=== PATIENT | female | born 1995 | race Caucasian/White ===

== ENCOUNTER 2016-08-16 06:16 | Emergency (ER) | payer OTHER ==
[2016-08-16 05:49] LABS: BASOPHIL% 0.5 % (0-2.5); EOSINOPHIL# 0.2 X10e3 (0-0.7); HEMATOCRIT 40.4 % (35.0-45.0); HEMOGLOBIN 13.4 gm/dL (12.0-16.0); LYMPHOCYTE# 2.8 X10e3 (1.0-3.5); MEAN CELL VOLUME 89.8 FL (83-96); MEAN CORPUSCULAR HEMOGLOBIN 29.9 PG (28-34); MEAN CORPUSCULAR HGB CONC 33.3 g/dL (30-36); MEAN PLATELET VOLUME 7.7 FL (6.5-11.5); MONOCYTE# 0.5 X10e3 (0-1.0); NEUTROPHIL# 5.5 X10e3 (1.5-7.1); NEUTROPHIL% 61.5 % (40-75); PLATELET COUNT 256 X10e3 (140-420); RED BLOOD COUNT 4.49 X10e (3.90-5.30); RED CELL DISTRIBUTION WIDTH 12.7 % (11.0-15.5)
[2016-08-16 05:50] LABS: DIFF IND NO
[2016-08-16 06:06] LABS: ALBUMIN SERUM 4.3 g/dL (3.5-5.0); ALKALINE PHOSPHATASE 80 U/L (32-92); ALT (SGPT) 31 U/L (10-40); AST (SGOT) 30 U/L (10-42); BILIRUBIN, DIRECT 0.1 mg/dL (0.0-0.2); BILIRUBIN,INDIRECT 0.3 mg/dL (0.0-0.9); BILIRUBIN,TOTAL 0.4 mg/dL (0.2-2.0); BLOOD UREA NITROGEN 11 mg/dL (9-23); BUN/CREATININE RATIO 13.75; CARBON DIOXIDE 23 mmol/L (22-31); CHLORIDE 107 mmol/L (100-111); CREATININE SERUM 0.8 mg/dL (0.6-1.4); GLOM FILT RATE Estimated ABOVE60 mL/min (>60); GLUCOSE FASTING 101 mg/dL (70-110); LIPASE 26 U/L (22-51); POTASSIUM 3.8 mmol/L (3.5-5.1); PROTEIN TOTAL SERUM 7.2 g/dL (6.0-8.3); SODIUM 139 mmol/L (135-145)
[~2016-08-16 06:16] MED LIST: NO MEDICATIONS; ZOFRAN ODT4 MG PO
[2016-08-16 07:44] LABS: URINE APPEARANCE CLEAR; URINE BILIRUBIN NEG (NEG); URINE COLOR YELLOW; URINE GLUCOSE NEG (NORM); URINE KETONE NEG (NEG); URINE NITRATE NEG (NEG); URINE PROTEIN NEG (NEG); URINE SOURCE CLEAN CATCH; URINE UROBILINOGEN 0.2 MG/DL (NORM)
[2016-08-16 07:46] LABS: MICRO INDICATED? NO; URINE BLOOD NEG (NEG); URINE LEUKOCYTE ESTERASE NEG (NEG)
== END 2016-08-16 08:30 | disposition home or self-care (01) ==
LOC: SED 06:16
PROVIDERS: Emergency Medicine
DX: K29.00 Acute gastritis without bleeding (principal)
CPT/HCPCS: 36415; 80048; 80076; 81003; 83690; 84703; 85025; 96361; 96374; 96375; 99284; J2270; J2405

== ENCOUNTER 2016-12-17 20:51 | Inpatient (IN) | payer OTHER ==
--- NOTE | ~2016-12-17 | EKG ---
PATIENT: ANDREZ SANTANA UNIT #: [id number] Ventricular Rate: 130 BPM Atrial Rate: 260 BPM QRS Duration: 72 ms Q-T Interval: 282 ms QTC Calculation(Bezet): 415 ms P [place]: 59 degrees Calculated R [place]: 62 degrees Calculated T [place]: 10 degrees Diagnosis Line: Sinus tachycardia Diagnosis Line: Nonspecific T wave abnormality Diagnosis Line: Abnormal ECG Diagnosis Line: When compared with ECG of 22-DEC-2016 03:56, Diagnosis Line: (unconfirmed) Diagnosis Line: is no longer Diagnosis Line: Confirmed by HANY CARRASCO MD ([id number]) on Diagnosis Line: 12/23/2016 10:01:21 AM INTERPRETING MD: CARLOS
--- NOTE | ~2016-12-17 | OR ---
Unit #: [id number] #: [id number] Patient: ANDREZ SANTANA [id number] [facility]. [place], [place] [address] [id number] Emani MR#: [id number] NAME: ANDREZ SANTANA ROOM: [facility] Date of Procedure: 12/19/2016 Admission Date: 12/18/2016 Surgeon: Blayne Hopkins M.D. : 1995 Attending Physician: Cari Felix M.D. Primary Care Physician: Primary Care Physician No OPERATIVE REPORT JOB NOTE: CC: PRIMARY CARE PHYSICIAN PROCEDURES PERFORMED Esophagogastroduodenoscopy to distal duodenum and endoscopic retrograde cholangiopancreatography with pancreatography. INDICATIONS FOR PROCEDURE A 21-year-old female, presented with upper abdominal pain, obstructive jaundice, possible common bile duct stones. MEDICATIONS Monitored anesthesia. POSTOPERATIVE FINDINGS 1. EGD exam was completely normal. Normal esophagus, stomach, duodenum, and distal duodenum. 2. ERCP exam was then carried out. Pancreatic duct was injected, was normal in appearance. 3. I was unable to get into the common bile duct despite several attempts. PLAN Will have a repeat attempt for ERCP with Dr. Ashley Holder or Dr. Lam at [facility]. Continue with antibiotics for now. DESCRIPTION OF PROCEDURE The patient was explained of the procedure, risks, and benefits. Risk of pancreatitis was discussed in detail. She was brought to the endoscopy room, laid in the prone position. Monitored anesthesia was given. EGD was done first. Scope was passed down the mouth into the esophagus, stomach, duodenum, and distal duodenum. Findings as described. Gently, the scope was pulled out. She tolerated it well. At this time, we used a side-viewing ERCP scope, which was passed down the mouth into the esophagus, stomach. Ampulla was visualized. She had a long intraduodenal ampulla. Pancreatic duct was not cannulated after one or two attempts. Minimal injection was carried out. Duct appears to be normal in size and shape. After several attempts, I could not still cannulate the common bile duct and we finally stopped the procedure. The stomach was decompressed. The scope was pulled out. She tolerated it well. Unit #: [id number] #: [id number] Patient: ANDREZ SANTANA Dictated by... Evangelist Alvarado/vega TD: 12/19/2016 13:34 JOB #: [id number] OPERATIVE REPORT Page 1 of 1 X Blayne Hopkins MD X PROCEDURE OPERATIVE NOTE
--- NOTE | ~2016-12-17 | OR ---
Unit #: [id number] #: [id number] Patient: ANDREZ HAMM [id number] [place], [place] [address] [id number] I MR#: [id number] NAME: ANDREZ HAMM ROOM: 55 Date of Procedure: 12/24/2016 Admission Date: 12/18/2016 Surgeon: Cheikh Dave M.D. : 1995 Attending Physician: Cari Felix M.D. OPERATIVE REPORT PREOPERATIVE DIAGNOSIS Obstructive jaundice. POSTOPERATIVE DIAGNOSIS Obstructive jaundice. PROCEDURE PERFORMED Laparoscopic cholecystectomy. HORSE STUD WORKER Billy Peterson M.D. ANESTHESIA General endotracheal anesthesia. ESTIMATED BLOOD LOSS Less than 20 mL. INDICATIONS FOR PROCEDURE Ms. Hamm is a 21-year-old female, who is 5 months who presented with obstructive jaundice. Preoperative ERCP with stent placement cleared her duct. She is now ready for cholecystectomy. DESCRIPTION OF PROCEDURE The patient was transported from her hospital into the operating room, and after induction of general endotracheal anesthesia, she was prepped and draped in usual sterile fashion. A 5-mm infraumbilical incision was made. Veress needle was placed. Pneumoperitoneum was created. Then, a 5-mm trocar was placed. Laparoscope was introduced into peritoneal cavity under direct vision. Epigastric and lateral ports were placed. Gallbladder was grasped and elevated. Adhesions were stripped away from the infundibulum and the infundibulum was elevated and retracted laterally. [place] of [place] was dissected out clearly identifying the cystic duct, gallbladder, and cystic duct-common duct junction and the posteriorly placed cystic artery. The cystic duct was swept upwards and then a single clip was placed in the cystic duct centered to gallbladder. Three clips were placed distally and the cystic duct was sharply divided. Posteriorly, the cystic artery was doubly clipped proximally and distally and divided. I then dissected the gallbladder from liver bed using cautery dissection. Once it was freed up from its hepatic attachments, it was brought out through the epigastric port. There was no spillage of bile or stones. There was good hemostasis. The epigastric fascial defect Unit #: [id number] #: [id number] Patient: ANDREZ HAMM was closed with the neoClose device and the closure was airtight. I then reduced pneumoperitoneum as I removed laparoscope and trocars. 0.5% Marcaine with epinephrine was infiltrated into each trocar site and the skin was closed with 4-0 Monocryl subcuticular closure and Dermabond skin adhesive. Sponges and needle counts were correct x3. The patient tolerated the procedure well and was transported to the recovery in stable condition. Dictated by... Evangelist Alaniz/vega TD: 12/24/2016 22:57 JOB #: [id number] OPERATIVE REPORT Page 1 of 1 X Cheikh Dave MD PROCEDURE OPERATIVE NOTE
--- NOTE | ~2016-12-17 | CO ---
Unit #: [id number] #: [id number] Patient: ANDREZ SANTANA [id number] [place], [place] [address] [id number] I MR#: [id number] NAME: ANDREZ SANTANA ROOM: 552 Age: 21 Sex: F Admission Date: 12/18/2016 : 1995 Attending Physician: Cari Felix M.D. Primary Care Physician: Primary Care Physician No Consultation Date: 12/22/2016 CONSULTATION REPORT REASON FOR CONSULTATION Tachycardia. HISTORY OF PRESENT ILLNESS This is a 21-year-old white female, who is admitted with a complaint of abdominal pain and nausea. She was noted to have elevated LFTs with ultrasound of the gallbladder positive for cholelithiasis and common bile duct dilatation. She underwent ERCP on 12/19/2016 for obstructive jaundice that was unsuccessful. During the course of her stay, the patient was noted to have a heart rate that was elevated up to the 140 beats per minute. EKG was felt to be atrial flutter with rapid ventricular response. She was started on a Cardizem drip. The patient was aware of palpitations, but had no chest pain. She denies shortness of breath, leg edema, cough. She has been febrile. White count noted for leukocytosis. She denies a history of hypertension, hyperlipidemia, diabetes, or nicotine abuse. She has no prior cardiac history or testing. PAST MEDICAL HISTORY 1. Asthma as a child. 2. Lifelong nonsmoker. PAST SURGICAL HISTORY section. 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 She has one small child. She has no history of alcohol, tobacco, or illicit drug use. FAMILY HISTORY Negative for coronary artery disease. ALLERGIES No known drug allergies. HOME MEDICATIONS No current home medications. REVIEW OF SYSTEMS CONSTITUTIONAL: Has recent fever, but no chills. Has no weight gain or weight loss. HEENT: No headache, hearing or vision changes, difficulty with swallowing. No dizziness. CARDIOVASCULAR: Positive for palpitations. Denies chest pain, paroxysmal Unit #: [id number] #: [id number] Patient: ANDREZ SANTANA nocturnal dyspnea, or orthopnea. No syncope or near syncope. RESPIRATORY: Negative for dyspnea, cough, or hemoptysis. GASTROINTESTINAL: Positive for abdominal discomfort and nausea. No constipation or melena. EXTREMITIES: Negative for lower extremity edema. PHYSICAL EXAMINATION VITAL SIGNS: Blood pressure 122/80, heart rate 125, temperature 99.7, and BMI 27. GENERAL: This is a 21-year-old mildly obese, white female, who is in no acute respiratory distress. NEUROLOGIC: She is awake, alert, and oriented. There are no focal weaknesses. NECK: Trachea is midline. No thyromegaly or lymphadenopathy. No jugular venous distention. HEART: S1, S2. Heart sounds are normal. No murmurs. No rubs or clicks. Regular rate and rhythm. It is tachycardic. ABDOMEN: Distended and soft with bowel sounds are diminished. EXTREMITIES: With palpable pedal pulses, but no leg edema. SKIN: Pale and dry. DIAGNOSTIC STUDIES LABORATORY RESULTS: Hemoglobin 11.4, hematocrit 34.2, platelet count 190, white count 15.4. Sodium 134, potassium 4.0, BUN 25, creatinine 0.5, glucose 104. Blood cultures are pending. CARDIOVASCULAR STUDIES: EKG shows sinus tachycardia with no acute ischemic changes. IMPRESSION 1. Abdominal pain. 2. Cholelithiasis. 3. Common bile duct dilatation, status post unsuccessful endoscopic retrograde cholangiopancreatography. 4. Rule out sepsis with leukocytosis. 5. Sinus tachycardia. PLAN 1. Cardiology was consulted for tachycardia. Review of the EKG shows sinus tachycardia. There is no atrial flutter or fibrillation. 2. We will wean Cardizem drip. 3. Start on beta-marifer short-term for heart rate control. We will assess the need for beta-marifer at discharge. 4. TSH will be checked. 5. Echocardiogram will be done to evaluate left ventricular systolic function. 6. Monitor blood pressure in view of possible sepsis. 7. Do not anticipate any further cardiac workup at this time. 8. Further recommendations pending Dr. Obando's evaluation. Thank you for allowing us to assist with this patient's care. Dictated by... Jennifer Fong M.D. AEP/vega Unit #: [id number] #: [id number] Patient: ANDREZ SANTANA TD: 12/24/2016 01:54 JOB #: [id number] CONSULTATION REPORT Page 1 of 1 X Prince Burgos APRN CONSULTATION REPORT
--- NOTE | ~2016-12-17 | HP ---
Unit #: [id number] #: [id number] Patient: ANDREZ SANTANA [id number] [place], [place] [address] [id number] I MR#: [id number] NAME: ANDREZ SANTANA ROOM: 217 Age: 21 Sex: F Admission Date: 12/18/2016 : 1995 Attending Physician: Cari Felix M.D. Primary Care Physician: No Primary Care Physician HISTORY AND PHYSICAL CHIEF COMPLAINT Symptomatic cholelithiasis with choledocholithiasis and jaundice. HISTORY OF PRESENT ILLNESS This pleasant 21-year-old is admitted for jaundice. The patient began to experience epigastric discomfort about two months ago. Three days ago the pain intensified and was more frequent, localized to the epigastric region, associated with eating and, at times, with sweats and chills. Yesterday, the patient noticed that she was jaundice with dark appearing urine. The patient presented to this emergency department late last evening where her pain has improved after morphine, Zofran and a liter of fluids. Labs are notable for elevated LFTs and a bilirubin of 6.3. The patient was given potassium for a potassium level of 2.9. On examination, she is tender in the epigastric region. A gallbladder ultrasound shows cholelithiasis with gallbladder duct being upper limits of normal at 0.7 cm. PAST MEDICAL HISTORY . SOCIAL HISTORY The patient is living with her boyfriend and boyfriend's family along with her child. She is a lifelong nonsmoker, does not drink alcohol. FAMILY HISTORY Grandmother had gallstones. ALLERGIES None. HOME MEDICATIONS The patient receives injectable Depo-Provera every three months. REVIEW OF SYSTEMS Notable for epigastric pain, nausea, vomiting, dark appearing urine, jaundice, . All other systems were reviewed and otherwise negative. PHYSICAL EXAMINATION GENERAL APPEARANCE: A very pleasant, jaundiced appearing 21-year-old female currently in no acute distress. VITAL SIGNS: Temperature 97.9. Pulse 86. Respirations 18. Blood pressure 137/101. O2 saturation is 100% on room air. Unit #: [id number] #: [id number] Patient: ANDREZ SANTANA HEENT: Eyes: PERRLA. Extraocular muscles are intact. Scleral icterus is noted. Pharynx is benign. NECK: Supple without adenopathy or thyromegaly. CHEST: Clear. CARDIAC: Normal S1, S2 without S3, S4 or murmur. ABDOMEN: Bowel sounds are present. The patient is tender in the epigastric region without rebound, guarding. No hepatosplenomegaly or masses. EXTREMITIES: Without clubbing, cyanosis or edema. NEUROLOGIC: The patient is awake, alert, oriented. Cranial nerves are intact. Equal strength throughout. DIAGNOSTIC STUDIES LABORATORY: Hematocrit 41.4, normal white count, platelet count. SMA-12: Potassium 2.9, bilirubin 6.3, AST 214, ALT 11, alkaline phosphatase 151. Normal lipase, amylase. Urinalysis is pending. IMAGING: Gallbladder ultrasound shows cholelithiasis with common bile duct at the upper limits of normal at 0.7 cm. ASSESSMENT 1. Cholelithiasis with choledocholithiasis and jaundice. 2. Hypokalemia. PLANS 1. and [facility] to see in consultation. 2. IV fluids and supportive treatment. 3. Replace potassium and check magnesium. 4. SCDs for DVT prophylaxis. 5. Repeat labs in the morning. The patient denies any possibility of . We will check a beta hCG as well. Dictated by Evangelist Anand/nieves TD: 12/18/2016 06:39 JOB #: [id number] HISTORY AND PHYSICAL Page 1 of 1 X Ainsley Donahue MD X HISTORY AND PHYSICAL
--- NOTE | ~2016-12-17 | CO ---
Unit #: [id number] #: [id number] Patient: ANDREZ HAMM [id number] [address] [id number] I MR#: [id number] NAME: ANDREZ HAMM ROOM: 217 Age: 21 Sex: F Admission Date: 12/18/2016 : 1995 Attending Physician: Cari Felix M.D. CONSULTATION REPORT HISTORY OF PRESENT ILLNESS Ms. Hamm is a 21-year-old white female, cholecystitis with documented common duct stone on ultrasonography. She did have a low potassium on admission from nausea and vomiting. She has no clinical cholangitis as far as fevers, chills, but she has jaundice. She has had episodes in the last few months off and on. ALLERGIES No known allergies. MEDICATIONS No current medications. PAST SURGICAL HISTORY She has had section in the past, but no other surgical procedures. SOCIAL HISTORY She is a nonsmoker and nondrinker. No illicit drug use. REVIEW OF SYSTEMS Otherwise, noncontributory. PHYSICAL EXAMINATION VITAL SIGNS: Temperature 98 degrees, pulse 80, respirations 18, blood pressure 137/100. HEENT: Clear except for some jaundice and scleral icterus. CARDIAC: Rhythm is regular. No audible murmurs. CHEST: Clear to auscultation and percussion. ABDOMEN: Soft, slight midepigastric and right upper quadrant tenderness, but no guarding, rebound, or rigidity. No evidence of "Pierre's sign." EXTREMITIES: Full range of motion. 1 to 2+ peripheral pulses bilaterally. No specific edema. No other issues noted. IMPRESSION Cholelithiasis with common duct stone. PLAN She needs ERCP followed by laparoscopic cholecystectomy. Risks have been explained to the patient and she understands. Dictated by... Robin Garcia M.D. Unit #: [id number] #: [id number] Patient: ANDREZ HAMM MARS/vega TD: 12/18/2016 06:15 JOB #: [id number] CONSULTATION REPORT Page 1 of 1 X Robin Garcia MD X CONSULTATION REPORT
--- NOTE | ~2016-12-17 | CO ---
Unit #: [id number] #: [id number] Patient: ANDREZ HAMM [id number] [place], [place] [address] [id number] Emani MR#: [id number] NAME: ANDREZ HAMM ROOM: 217 Age: 21 Sex: F Admission Date: 12/18/2016 : 1995 Attending Physician: Cari Felix M.D. Primary Care Physician: No Primary Care Physician Consultation Date: 12/19/2016 CONSULTATION REPORT REFERRING PHYSICIAN Dr. Donahue. REASON FOR CONSULTATION Obstructive jaundice. HISTORY OF PRESENT ILLNESS Ms. Hamm is a 21-year-old female. She was admitted with epigastric and right upper quadrant pain going on for some time, worsening for last several days. The patient was noticed to be jaundiced and CT scan initially found gallbladder stones in dilated bile duct. I was consulted for ERCP and further evaluation at this time. She has been started with antibiotics and pain medications. Her LFTs seem to be somewhat better; however, still has pain at this time. PAST MEDICAL HISTORY History of , otherwise unremarkable. SOCIAL HISTORY Nonsmoker. Nonalcoholic. FAMILY HISTORY Positive for gallstones. No history of colon cancer. ALLERGIES None. HOME MEDICATIONS None. REVIEW OF SYSTEMS A complete 10-point review of systems was done which was unremarkable other than as mentioned above. PHYSICAL EXAMINATION VITAL SIGNS: Stable. Afebrile. Temperature 97.9, pulse 86, respirations 18, blood pressure 137/101. GENERAL: No acute distress. HEENT: Pupils equal and reactive. Sclerae slightly icteric. Oral mucosa moist. NECK: No JVD. No lymphadenopathy. CHEST: Clear to auscultation bilaterally. CARDIOVASCULAR: Regular rate and rhythm. No murmurs. ABDOMEN: Soft. Mild tenderness right upper quadrant and epigastric area. Unit #: [id number] #: [id number] Patient: ANDREZ HAMM No guarding. No rebound. EXTREMITIES: Without clubbing, cyanosis, or edema. NEUROLOGIC: Grossly intact. No focal sensory or motor deficits. DIAGNOSTIC STUDIES LABORATORY: Bilirubin 6.3, predominantly direct. AST 214, ALT 114, alkaline phosphatase 151. Normal white count. Normal hemoglobin and hematocrit and platelet count. IMAGING: Ultrasound shows gallbladder stones and dilated common bile duct at 7 mm. ASSESSMENT 1. Acute biliary colic. 2. Obstructive jaundice, most likely secondary to common bile duct stone. 3. Cholelithiasis. PLAN Will need an ERCP followed by laparoscopic cholecystectomy. The procedure along with risk and risk of pancreatitis was discussed in detail with the patient and the mother. She will be continued on her antibiotic and pain medication and brought for ECRP soon. Thank you, Dr. Donahue, for this interesting consult. Will follow along. Dictated by... Blayne Hopkins M.D. CONRAD/gayatri TD: 12/19/2016 16:22 JOB #: [id number] CONSULTATION REPORT Page 1 of 1 X Blayne Hopkins MD X CONSULTATION REPORT
--- NOTE | ~2016-12-17 | EKG ---
PATIENT: ANDREZ SANTANA UNIT #: [id number] Ventricular Rate: 129 BPM Atrial Rate: 258 BPM QRS Duration: 82 ms Q-T Interval: 300 ms QTC Calculation(Bezet): 439 ms P [place]: 59 degrees Calculated R [place]: 68 degrees Calculated T [place]: 9 degrees Diagnosis Line: Sinus tachycardia Diagnosis Line: Borderline ECG Diagnosis Line: No previous ECGs available Diagnosis Line: Confirmed by HANY CARRASCO MD ([id number]) on Diagnosis Line: 12/23/2016 10:00:59 AM INTERPRETING MD: CARLOS
--- NOTE | ~2016-12-17 | US67 ---
[facility] A Service of [facility] RADIOLOGY TEXT RESULTS PATIENT: ANDREZ SANTANA LOCATION: [facility] : [birth year] UNIT #: [id number] AGE: [address]: Cari Felix MD SEX: F ORDER DR: [id number] [place], [place] [address] [id number] I MR#: [id number] Acc #: [id number] NAME: ANDREZ SANTANA : 1995 SEX: F STUDY DATE/TIME: 12/17/2016 22:49 UNIT: [facility] ROOM: [facility] STUDY DESCRIPTION: US Gallbladder Attending Physician: Cari Felix M.D. Ordering Physician: Adarsh Luciano M.D. Primary Care Physician: No Primary Care Physician MEDICAL IMAGING REPORT This report is preliminary unless electronic signature is present EXAM Right upper quadrant ultrasound. INDICATIONS Intermittent pain for 2-3 months. Generalized right upper quadrant pain. Cholelithiasis. COMPARISON None available. FINDINGS Visualized portion of the pancreatic head and body are within normal limits. Pancreatic tail is largely obscured. The hepatic parenchyma is within normal limits. No hepatic mass. The intrahepatic bile ducts are normal in caliber. The common duct is at the upper limits of normal measuring 0.7 cm. There are gallstones layering dependently in the gallbladder. No gallbladder distension. No gallbladder wall thickening or pericholecystic fluid. The right kidney measures 11 cm. Renal cortical thickness and echogenicity is within normal limits. No hydronephrosis. No ascites. IMPRESSION 1. Cholelithiasis. 2. The common bile duct is at the upper limits of normal measuring 0.7 cm. If there is elevated liver function tests or evidence of a biliary obstruction, consider further evaluation with MRCP/ERCP. Distal common bile duct obstruction should be considered. [facility] A Service of [facility] RADIOLOGY TEXT RESULTS PATIENT: ANDREZ SANTANA LOCATION: [facility] : [birth year] UNIT #: [id number] AGE: [address]: Cari Felix MD SEX: F ORDER DR: Dictated by... Jose Mclain M.D. THIS IS AN ELECTRONICALLY VERIFIED REPORT Jose Mclain M.D. at 12/18/2016 10:49 PM RUTHY/trini TD: 12/18/2016 16:54 JOB #: [id number] MEDICAL IMAGING REPORT Page 1 of 1 COPY
--- NOTE | ~2016-12-17 | CR84 ---
[facility] A Service of [facility] RADIOLOGY TEXT RESULTS PATIENT: ANDREZ SANTANA LOCATION: [facility] 217-01 : [birth year] UNIT #: [id number] AGE: [address]: Cari Felix MD SEX: F ORDER DR: [id number] [facility] [address] [facility]. [place], [place] [address] [id number] I MR#: [id number] Acc #: [id number] NAME: ANDREZ SANTANA : 1995 SEX: F STUDY DATE/TIME: 12/19/2016 8:30 UNIT: [facility] ROOM: [facility] STUDY DESCRIPTION: CR ERCP Biliary and Pancr SI Attending Physician: Cari Felix M.D. Ordering Physician: Blayne Hopkins M.D. Primary Care Physician: Primary Care Physician No MEDICAL IMAGING REPORT This report is preliminary unless electronic signature is present EXAM ERCP, 12/19/2016 HISTORY Obstructive jaundice and common bile duct stones. FINDINGS ERCP was performed by Dr. Hopkins. Two spot film radiographs of the upper abdomen were obtained and 1 minute, 42 seconds of fluoroscopy time was utilized. Contrast injection of the pancreatic duct was normal. Dr. Hopkins was unable to cannulate the common bile duct. Dictated by... Tony Mcdowell M.D. THIS IS AN ELECTRONICALLY VERIFIED REPORT Tony Mcdowell M.D. at 12/21/2016 8:03 AM JONATHON/jan TD: 12/19/2016 15:30 JOB #: [id number] MEDICAL IMAGING REPORT Page 1 of 1 COPY
--- NOTE | ~2016-12-17 | DS ---
Unit #: [id number] #: [id number] Patient: ANDREZ SANTANA [id number] [facility]. [place], [place] [address] [id number] MR#: [id number] NAME: ANDREZ SANTANA ROOM: 552 Age: 21 Sex: F Admission Date: 12/18/2016 : 1995 Discharge Date: 12/25/2016 Attending Physician: Cari Felix M.D. DISCHARGE SUMMARY REASON FOR ADMISSION Symptomatic cholelithiasis with choledocholithiasis and jaundice. HISTORY OF PRESENT ILLNESS/HOSPITAL COURSE Please refer to History and Physical for complete details. A consultation was placed to both the GI service, as well as to [facility]. Initially, recommendation was made for upper GI endoscopy, as well as an ERCP. This was conducted by Dr. Hopkins. Please see his procedure note for complete details. Essentially, EGD was normal, and ERCP was subsequently initiated. The pancreatic duct was injected. It was normal, but he was unable to get into the common bile duct despite several attempts. Postoperatively and after ERCP, the patient developed elevated lipase consistent with acute pancreatitis. She was subsequently treated appropriately. Then, patient was transferred downtown to [facility] for repeat ERCP with Dr. Ashley Holder which she underwent with successful stent placement. Afterwards, [facility] saw and evaluated the patient. Eventually, the patient's lipase level did revert back to normal. Other laboratory studies were also ascertained including blood cultures that did not show any bacterial growth. The patient ultimately underwent laparoscopic cholecystectomy. Please see their procedure note for details. Postoperatively, she otherwise has done well. DIAGNOSTIC STUDIES LABORATORY AT TIME OF DISCHARGE: AST and ALT of 72 and 108 and bilirubin level of 1. Lipase is mildly elevated at 57. White count is 15.4 and hemoglobin is 10.8. At this point in time, the patient will be discharged home. She will be given a work note until January 15, 2017. She will return to work on January 16. She will follow with her primary care physician in approximately seven to 10 days for a repeat CMP and CBC. She will follow up with [facility] in two weeks. Please note, through her hospital course, patient after her ERCP did also have sinus tachycardia with rhythm changes at one point that appeared to be atrial fibrillation, however, most consistent with sinus tachycardia. This prompted a Cardiology consultation. Patient did undergo a 2D echocardiogram which showed a normal ejection fraction, but it was Unit #: [id number] #: [id number] Patient: ANDREZ SANTANA recommended that she be placed on Lopressor 25 mg p.o. t.i.d. She will follow up with cardiology services as an outpatient, Dr. Lopez, on January 29, at 1:30 p.m. A 24-hour Holter monitor was recommended in approximately two weeks. FINAL DISCHARGE DIAGNOSES 1. Obstructive jaundice. 2. Choledocholithiasis. 3. Symptomatic cholelithiasis. 4. Post-ERCP pancreatitis. 5. Sinus tachycardia. FINAL DISCHARGE MEDICATIONS 1. Lopressor 25 mg p.o. t.i.d. 2. [place] 7.5/325 at 1 tablet p.o. q.6 p.r.n., prescription given by [facility]. 3. Augmentin 875 mg p.o. b.i.d. x5 days. DISCHARGE CONDITION Stable. DISCHARGE DISPOSITION Home. Dictated by... Evangelist Garg/gokul TD: 12/25/2016 18:56 JOB #: [id number] DISCHARGE SUMMARY Page 1 of 1 X Cari Felix MD X DISCHARGE SUMMARY
[2016-12-17 22:31] LABS: BASOPHIL% 0.3 % (0-2.5); EOSINOPHIL# 0.1 X10e3 (0-0.7); EOSINOPHIL% 0.9 % (0.0-7.0); HEMATOCRIT 41.4 % (35.0-45.0); HEMOGLOBIN 13.7 gm/dL (12.0-16.0); LYMPHOCYTE# 1.8 X10e3 (1.0-3.5); LYMPHOCYTE% 22.7 % (17.0-45.0); MEAN CELL VOLUME 87.5 FL (83-96); MEAN CORPUSCULAR HEMOGLOBIN 29.1 PG (28-34); MEAN CORPUSCULAR HGB CONC 33.2 g/dL (30-36); MONOCYTE# 0.5 X10e3 (0-1.0); MONOCYTE% 6.4 % (3.0-12.0); NEUTROPHIL# 5.4 X10e3 (1.5-7.1); NEUTROPHIL% 69.7 % (40-75); PLATELET COUNT 265 X10e3 (140-420); RED BLOOD COUNT 4.73 X10e (3.90-5.30); RED CELL DISTRIBUTION WIDTH 13.3 % (11.0-15.5); WHITE BLOOD COUNT 7.8 X10e3 (4.0-10.5)
[2016-12-17 22:32] LABS: DIFF IND NO
[2016-12-17 22:57] LABS: ALBUMIN SERUM 4.3 g/dL (3.5-5.0); BILIRUBIN, DIRECT 4.1 mg/dL (0.0-0.2); BILIRUBIN,INDIRECT 2.2 mg/dL (0.0-0.9); BILIRUBIN,TOTAL 6.3 mg/dL (0.2-2.0); CREATININE SERUM 0.5 mg/dL (0.6-1.4); GLOM FILT RATE Estimated 139.3 mL/min (>60); POTASSIUM 2.9 mmol/L (3.5-5.1); PROTEIN TOTAL SERUM 7.6 g/dL (6.0-8.3)
[2016-12-17 23:15] LABS: URINE SOURCE CLEAN CATCH
[2016-12-17 23:36] LABS: URINE APPEARANCE CLEAR; URINE BLOOD TRACE (NEG); URINE COLOR DK YELLOW; URINE GLUCOSE NEG (NEG); URINE KETONE 1+ (NEG); URINE LEUKOCYTE ESTERASE 1+ (NEG); URINE NITRATE POS (NEG); URINE PH 5.5 (5-8); URINE PROTEIN NEG (NEG); URINE SPECIFIC GRAVITY 1.023 (1.003-1.035)
[2016-12-17 23:39] LABS: URINE BACTERIA AUWI NEG (NEGATIVE); URINE SQUAMOUS EPITHELIAL CELL OCC /[HPF]; UWBCS1 AUWI 0-2 (0-5)
[2016-12-17 23:47] LABS: URINE BILIRUBIN POS (NEG)
[2016-12-17 23:49] LABS: CULTURE INDICATED? NO
[2016-12-18 07:20] LABS: BASOPHIL% 0.4 % (0-2.5); EOSINOPHIL# 0.1 X10e3 (0-0.7); EOSINOPHIL% 1.4 % (0.0-7.0); HEMATOCRIT 39.9 % (35.0-45.0); HEMOGLOBIN 13.1 gm/dL (12.0-16.0); LYMPHOCYTE# 2.5 X10e3 (1.0-3.5); LYMPHOCYTE% 38.6 % (17.0-45.0); MEAN CELL VOLUME 89.2 FL (83-96); MEAN CORPUSCULAR HEMOGLOBIN 29.3 PG (28-34); MEAN CORPUSCULAR HGB CONC 32.8 g/dL (30-36); MEAN PLATELET VOLUME 8.5 FL (6.5-11.5); MONOCYTE# 0.5 X10e3 (0-1.0); MONOCYTE% 7.5 % (3.0-12.0); NEUTROPHIL# 3.4 X10e3 (1.5-7.1); NEUTROPHIL% 52.1 % (40-75); PLATELET COUNT 227 X10e3 (140-420); RED BLOOD COUNT 4.48 X10e (3.90-5.30); RED CELL DISTRIBUTION WIDTH 13.5 % (11.0-15.5); WHITE BLOOD COUNT 6.5 X10e3 (4.0-10.5)
[2016-12-18 07:21] LABS: DIFF IND NO
[2016-12-18 07:37] LABS: ALBUMIN SERUM 3.6 g/dL (3.5-5.0); ALKALINE PHOSPHATASE 130 U/L (32-92); ALT (SGPT) 631 U/L (10-40); AST (SGOT) 147 U/L (10-42); CALCIUM SERUM 8.8 mg/dL (8.4-10.2); CARBON DIOXIDE 23 mmol/L (22-31); CHLORIDE 109 mmol/L (100-111); CREATININE SERUM 0.6 mg/dL (0.6-1.4); GLOM FILT RATE Estimated 131.2 mL/min (>60); GLUCOSE FASTING 96 mg/dL (70-110); PROTEIN TOTAL SERUM 6.2 g/dL (6.0-8.3); SODIUM 140 mmol/L (135-145)
[2016-12-18 07:38] LABS: BLOOD UREA NITROGEN <5 mg/dL (9-23); BUN/CREATININE RATIO 8.33
[2016-12-19 05:32] LABS: HEMATOCRIT 40.2 % (35.0-45.0); HEMOGLOBIN 13.3 gm/dL (12.0-16.0); MEAN CELL VOLUME 89.1 FL (83-96); MEAN CORPUSCULAR HEMOGLOBIN 29.6 PG (28-34); MEAN CORPUSCULAR HGB CONC 33.2 g/dL (30-36); MEAN PLATELET VOLUME 8.1 FL (6.5-11.5); RED BLOOD COUNT 4.51 X10e (3.90-5.30); RED CELL DISTRIBUTION WIDTH 13.7 % (11.0-15.5); WHITE BLOOD COUNT 6.3 X10e3 (4.0-10.5)
[2016-12-19 06:41] LABS: ALBUMIN SERUM 3.6 g/dL (3.5-5.0); ALKALINE PHOSPHATASE 126 U/L (32-92); ALT (SGPT) 477 U/L (10-40); AST (SGOT) 80 U/L (10-42); BILIRUBIN,TOTAL 2.2 mg/dL (0.2-2.0); CALCIUM SERUM 8.9 mg/dL (8.4-10.2); CARBON DIOXIDE 24 mmol/L (22-31); CHLORIDE 108 mmol/L (100-111); CREATININE SERUM 0.7 mg/dL (0.6-1.4); GLOM FILT RATE Estimated 124.7 mL/min (>60); GLUCOSE FASTING 103 mg/dL (70-110); PROTEIN TOTAL SERUM 6.5 g/dL (6.0-8.3); SODIUM 138 mmol/L (135-145)
[2016-12-19 06:42] LABS: BLOOD UREA NITROGEN <5 mg/dL (9-23); BUN/CREATININE RATIO 7.14
[2016-12-20 06:02] LABS: HEMATOCRIT 45.8 % (35.0-45.0); HEMOGLOBIN 15.2 gm/dL (12.0-16.0); MEAN CELL VOLUME 88.8 FL (83-96); MEAN CORPUSCULAR HEMOGLOBIN 29.5 PG (28-34); MEAN CORPUSCULAR HGB CONC 33.2 g/dL (30-36); MEAN PLATELET VOLUME 8.4 FL (6.5-11.5); RED BLOOD COUNT 5.15 X10e (3.90-5.30); RED CELL DISTRIBUTION WIDTH 13.8 % (11.0-15.5)
[2016-12-20 08:06] LABS: ALBUMIN SERUM 3.5 g/dL (3.5-5.0); BILIRUBIN,TOTAL 1.2 mg/dL (0.2-2.0); BUN/CREATININE RATIO 7.14; CALCIUM SERUM 8.8 mg/dL (8.4-10.2); CREATININE SERUM 0.7 mg/dL (0.6-1.4); GLOM FILT RATE Estimated 124.7 mL/min (>60); POTASSIUM 3.9 mmol/L (3.5-5.1); PROTEIN TOTAL SERUM 6.5 g/dL (6.0-8.3)
[2016-12-21 07:38] LABS: HA AB IGM (HEPPAN) Nonreactive (()); HB CORE AB IGM (HEPPAN) Nonreactive (Nonreactive); HB S AG (HEPPAN) Nonreactive (Nonreactive); HEP C AB (HEPPAN) Nonreactive (Nonreactive); HEP C AB SIGNAL TO CUTOFF 0.01 ratio (<1.00)
[2016-12-21 08:24] LABS: HEMATOCRIT 43.1 % (35.0-45.0); HEMOGLOBIN 14.1 gm/dL (12.0-16.0); MEAN CELL VOLUME 89.3 FL (83-96); MEAN CORPUSCULAR HEMOGLOBIN 29.2 PG (28-34); MEAN CORPUSCULAR HGB CONC 32.7 g/dL (30-36); MEAN PLATELET VOLUME 8.7 FL (6.5-11.5); RED BLOOD COUNT 4.83 X10e (3.90-5.30); RED CELL DISTRIBUTION WIDTH 13.7 % (11.0-15.5); WHITE BLOOD COUNT 24.3 X10e3 (4.0-10.5)
[2016-12-21 09:13] LABS: ALKALINE PHOSPHATASE 97 U/L (32-92); ALT (SGPT) 203 U/L (10-40); AMYLASE 802 U/L (0-46); AST (SGOT) 24 U/L (10-42); BILIRUBIN,TOTAL 2.7 mg/dL (0.2-2.0); CALCIUM SERUM 8.4 mg/dL (8.4-10.2); CARBON DIOXIDE 24 mmol/L (22-31); CHLORIDE 101 mmol/L (100-111); CREATININE SERUM 0.5 mg/dL (0.6-1.4); GLOM FILT RATE Estimated 139.3 mL/min (>60); GLUCOSE FASTING 104 mg/dL (70-110); LIPASE 194 U/L (22-51); PROTEIN TOTAL SERUM 6.2 g/dL (6.0-8.3); SODIUM 134 mmol/L (135-145)
[2016-12-21 09:16] LABS: BLOOD UREA NITROGEN <5 mg/dL (9-23)
[2016-12-22 05:34] LABS: HEMATOCRIT 34.2 % (35.0-45.0); MEAN CELL VOLUME 88.9 FL (83-96); MEAN CORPUSCULAR HEMOGLOBIN 29.6 PG (28-34); MEAN CORPUSCULAR HGB CONC 33.2 g/dL (30-36); MEAN PLATELET VOLUME 8.7 FL (6.5-11.5); RED BLOOD COUNT 3.85 X10e (3.90-5.30); RED CELL DISTRIBUTION WIDTH 13.7 % (11.0-15.5); WHITE BLOOD COUNT 15.4 X10e3 (4.0-10.5)
[2016-12-22 05:40] LABS: HEMOGLOBIN 11.4 gm/dL (12.0-16.0)
[2016-12-22 08:51] LABS: ALBUMIN SERUM 2.5 g/dL (3.5-5.0); ALKALINE PHOSPHATASE 75 U/L (32-92); ALT (SGPT) 129 U/L (10-40); AST (SGOT) 19 U/L (10-42); BILIRUBIN,TOTAL 1.2 mg/dL (0.2-2.0); CALCIUM SERUM 7.7 mg/dL (8.4-10.2); CARBON DIOXIDE 25 mmol/L (22-31); CHLORIDE 104 mmol/L (100-111); CREATININE SERUM 0.3 mg/dL (0.6-1.4); GLOM FILT RATE Estimated 164.9 mL/min (>60); GLUCOSE FASTING 105 mg/dL (70-110); LIPASE 40 U/L (22-51); POTASSIUM 3.9 mmol/L (3.5-5.1); PROTEIN TOTAL SERUM 5.6 g/dL (6.0-8.3); SODIUM 134 mmol/L (135-145)
[2016-12-22 08:52] LABS: BLOOD UREA NITROGEN <5 mg/dL (9-23); BUN/CREATININE RATIO 16.66
[2016-12-23 07:32] LABS: BASOPHIL# 0.1 X10e3 (0-0.3); BASOPHIL% 0.4 % (0-2.5); EOSINOPHIL# 0.1 X10e3 (0-0.7); EOSINOPHIL% 0.6 % (0.0-7.0); HEMATOCRIT 32.1 % (35.0-45.0); HEMOGLOBIN 10.7 gm/dL (12.0-16.0); LYMPHOCYTE# 1.3 X10e3 (1.0-3.5); LYMPHOCYTE% 7.7 % (17.0-45.0); MEAN CELL VOLUME 86.8 FL (83-96); MEAN CORPUSCULAR HEMOGLOBIN 29.1 PG (28-34); MEAN CORPUSCULAR HGB CONC 33.5 g/dL (30-36); MEAN PLATELET VOLUME 8.5 FL (6.5-11.5); MONOCYTE# 1.1 X10e3 (0-1.0); MONOCYTE% 6.5 % (3.0-12.0); NEUTROPHIL# 13.8 X10e3 (1.5-7.1); NEUTROPHIL% 84.8 % (40-75); PLATELET COUNT 227 X10e3 (140-420); RED BLOOD COUNT 3.69 X10e (3.90-5.30); RED CELL DISTRIBUTION WIDTH 14.7 % (11.0-15.5); WHITE BLOOD COUNT 16.2 X10e3 (4.0-10.5)
[2016-12-23 07:33] LABS: DIFF IND YES
[2016-12-23 07:57] LABS: PLATELET ESTIMATE NORMAL (NORMAL)
[2016-12-23 07:58] LABS: ALBUMIN SERUM 2.2 g/dL (3.5-5.0); ALKALINE PHOSPHATASE 72 U/L (32-92); ALT (SGPT) 99 U/L (10-40); AMYLASE 133 U/L (0-46); ANISOCYTOSIS SL; AST (SGOT) 20 U/L (10-42); CALCIUM SERUM 7.9 mg/dL (8.4-10.2); CARBON DIOXIDE 24 mmol/L (22-31); CHLORIDE 103 mmol/L (100-111); CREATININE SERUM 0.5 mg/dL (0.6-1.4); GLOM FILT RATE Estimated 139.3 mL/min (>60); GLUCOSE FASTING 107 mg/dL (70-110); LIPASE 26 U/L (22-51); MAGNESIUM 1.8 mg/dL (1.6-3.0); POTASSIUM 3.6 mmol/L (3.5-5.1); PROTEIN TOTAL SERUM 5.7 g/dL (6.0-8.3); SODIUM 135 mmol/L (135-145)
[2016-12-23 08:00] LABS: BLOOD UREA NITROGEN <5 mg/dL (9-23)
[2016-12-23 17:24] LABS: URINE APPEARANCE CLEAR; URINE BILIRUBIN NEG (NEG); URINE BLOOD 2+ (NEG); URINE COLOR YELLOW; URINE GLUCOSE NEG (NEG); URINE KETONE NEG (NEG); URINE LEUKOCYTE ESTERASE 3+ (NEG); URINE NITRATE NEG (NEG); URINE PROTEIN NEG (NEG); URINE SPECIFIC GRAVITY 1.008 (1.003-1.035); URINE UROBILINOGEN 0.2 MG/DL (NEG)
[2016-12-23 17:28] LABS: URINE BACTERIA AUWI NEG (NEGATIVE); URINE SQUAMOUS EPITHELIAL CELL FEW /[HPF]
[2016-12-23 17:43] LABS: U HYALINE CASTS AUWI 0-2 /[LPF]
[2016-12-24 08:03] LABS: HEMATOCRIT 32.5 % (35.0-45.0); HEMOGLOBIN 10.7 gm/dL (12.0-16.0); MEAN CELL VOLUME 88.6 FL (83-96); MEAN CORPUSCULAR HEMOGLOBIN 29.1 PG (28-34); MEAN CORPUSCULAR HGB CONC 32.8 g/dL (30-36); MEAN PLATELET VOLUME 7.9 FL (6.5-11.5); RED BLOOD COUNT 3.67 X10e (3.90-5.30); RED CELL DISTRIBUTION WIDTH 14.4 % (11.0-15.5); WHITE BLOOD COUNT 16.5 X10e3 (4.0-10.5)
[2016-12-24 09:14] LABS: ALKALINE PHOSPHATASE 79 U/L (32-92); ALT (SGPT) 89 U/L (10-40); AST (SGOT) 30 U/L (10-42); BILIRUBIN,TOTAL 0.8 mg/dL (0.2-2.0); CALCIUM SERUM 7.9 mg/dL (8.4-10.2); CARBON DIOXIDE 24 mmol/L (22-31); CHLORIDE 105 mmol/L (100-111); CREATININE SERUM 0.3 mg/dL (0.6-1.4); GLOM FILT RATE Estimated 164.9 mL/min (>60); GLUCOSE FASTING 100 mg/dL (70-110); POTASSIUM 4.2 mmol/L (3.5-5.1); SODIUM 134 mmol/L (135-145)
[2016-12-24 09:15] LABS: BLOOD UREA NITROGEN <5 mg/dL (9-23); BUN/CREATININE RATIO 16.66
[2016-12-25 06:38] LABS: HEMATOCRIT 32.7 % (35.0-45.0); HEMOGLOBIN 10.8 gm/dL (12.0-16.0); MEAN CELL VOLUME 87.4 FL (83-96); MEAN CORPUSCULAR HGB CONC 33.2 g/dL (30-36); MEAN PLATELET VOLUME 7.8 FL (6.5-11.5); RED BLOOD COUNT 3.74 X10e (3.90-5.30); RED CELL DISTRIBUTION WIDTH 14.3 % (11.0-15.5); WHITE BLOOD COUNT 15.4 X10e3 (4.0-10.5)
[2016-12-25 07:22] LABS: ALBUMIN SERUM 2.2 g/dL (3.5-5.0); ALKALINE PHOSPHATASE 116 U/L (32-92); ALT (SGPT) 108 U/L (10-40); AST (SGOT) 72 U/L (10-42); BLOOD UREA NITROGEN <5 mg/dL (9-23); CALCIUM SERUM 8.1 mg/dL (8.4-10.2); CARBON DIOXIDE 22 mmol/L (22-31); CHLORIDE 102 mmol/L (100-111); CREATININE SERUM 0.4 mg/dL (0.6-1.4); GLUCOSE FASTING 90 mg/dL (70-110); LIPASE 57 U/L (22-51); PROTEIN TOTAL SERUM 5.6 g/dL (6.0-8.3); SODIUM 135 mmol/L (135-145)
[2016-12-25] MEDS ORDERED: METOPROLOL TAR25 MG PO (14:35)
[2016-12-25] MEDS ORDERED: AUGMENTIN PO (14:36)
[2016-12-25] MEDS ORDERED: HYDROCODON-ACE1 EAC9 PO (14:36)
[2016-12-25] MEDS ORDERED: ZOFRAN ODT4 M1 PO (14:39)
== END 2016-12-25 16:33 | disposition home or self-care (01) | DRG 417 ==
LOC: CED 20:51 → CEDOF 12-18 00:05 → CED 12-18 00:05 → C2A 12-18 00:10 → CEDOF 12-18 00:10 → C2A 12-18 02:10 → CICCU3 12-22 03:48 → C5B 12-22 14:28
PROVIDERS: Emergency Medicine; Family Medicine; Internal Medicine; Obstetrics & Gynecology; Specialist; Surgery
PROC: BF18YZZ Fluoroscopy of Pancreatic Ducts using Other Contrast (ICD-10-PCS; 2016-12-19)
PROC: 0DJ08ZZ Inspection of Upper Intestinal Tract, Via Natural or Artificial Opening Endoscopic (ICD-10-PCS; 2016-12-19)
PROC: 0F7D8ZZ Dilation of Pancreatic Duct, Via Natural or Artificial Opening Endoscopic (ICD-10-PCS; 2016-12-19 09:24)
PROC: 05HB33Z Insertion of Infusion Device into Right Basilic Vein, Percutaneous Approach (ICD-10-PCS; 2016-12-22)
PROC: B24BZZZ Ultrasonography of Heart with Aorta (ICD-10-PCS; 2016-12-22)
PROC: 0FT44ZZ Resection of Gallbladder, Percutaneous Endoscopic Approach (ICD-10-PCS; principal; 2016-12-24 09:00)
DX: K80.41 Calculus of bile duct with cholecystitis, unspecified, with obstruction (principal); K85.80 Other acute pancreatitis without necrosis or infection; R00.0 Tachycardia, unspecified; E87.6 Hypokalemia; K83.8 Other specified diseases of biliary tract; R74.0 Nonspecific elevation of levels of transaminase and lactic acid dehydrogenase [LDH]; Z83.79 Family history of other diseases of the digestive system
CPT/HCPCS: 36415; 74330; 76705; 80048; 80053; 80074; 80076; 81003; 82150; 83605; 83690; 83735; 84439; 84443; 84703; 85025; 85027; 85610; 85730; 87040; 88304; 93005; 93306; 96361; 96374; 96375; 99285; J0330; J1170; J1610; J2185; J2250; J2270; J2405; J2543; J2550; J3010; J3490